=== PATIENT | male | born 1995 | race Caucasian/White ===

== ENCOUNTER 2023-02-15 00:55 | Emergency (ER) | payer MEDICAID ==
[~2023-02-15] VITALS: Ht 162.6 cm; Wt 49.9 kg
[2023-02-15 01:24] VITALS: BP 120/87; PULSE 80; RESP 16; TEMP 98; O2SAT 96
[2023-02-15] MEDS ORDERED: KETOROLAC 60 MG/2 ML VIAL IM ONE (01:45)
[2023-02-15] MEDS ORDERED: ATA25 PO (01:52)
[2023-02-15] MEDS ORDERED: ONDA8TAB87 PO (01:52)
[2023-02-15] MEDS ORDERED: IBUP-2213 PO (01:52)
[2023-02-15 02:15] VITALS: BP 120/87; PULSE 80; RESP 16; TEMP 98; O2SAT 96
== END 2023-02-15 02:15 | disposition home or self-care (01) ==
LOC: MED 00:55
DX: R10.9 Unspecified abdominal pain (principal); R11.2 Nausea with vomiting, unspecified; F41.9 Anxiety disorder, unspecified; Z79.899 Other long term (current) drug therapy
CPT/HCPCS: 96372; 99283; J1885